=== PATIENT | male | born 1975 | race Caucasian/White ===

== ENCOUNTER 2018-05-05 19:17 | Emergency (ER) | payer OTHER ==
[~2018-05-05] VITALS: Ht 190.5 cm; Wt 131.6 kg
[2018-05-05 19:48] VITALS: BP 144/94
--- NOTE | 2018-05-05 21:27 | NUR ---
1ST CALL-N/A IN ER LOBBY-ER ADMITING STS " PT LEFT PER ADMIT PRINCIPAL HARDWARE ARCHITECT."
--- NOTE | 2018-05-05 21:42 | NUR ---
2ND CALL N/A IN ER LOBBY
== END 2018-05-05 21:27 | disposition left against medical advice (07) ==
LOC: MED 19:17
DX: S71.111A Laceration without foreign body, right thigh, initial encounter (principal); Z53.21 Procedure and treatment not carried out due to patient leaving prior to being seen by health care provider; W26.0XXA Contact with knife, initial encounter; Y93.89 Activity, other specified; Y92.89 Other specified places as the place of occurrence of the external cause; Y99.8 Other external cause status